=== PATIENT | male | born 1930 | race Caucasian/White ===

== ENCOUNTER → 2017-08-15 | Outpatient (CLI) | payer MEDICARE ==
--- NOTE | 2017-08-15 15:53 | PCVCIMAG ---
EXAM: BILATERAL LOWER EXTREMITY ARTERIAL DUPLEX INDICATION: Peripheral Arterial Disease. Leg pain. Nonhealing ulcers both lower legs. FINDINGS: Right Le-70% stenosis mid common femoral artery. Mild stenosis at the origin the profunda femoral artery. Segmental occlusion mid superficial femoral artery. Mid/distal superficial femoral artery refills and there is an 80% stenosis. 60-70% stenosis mid popliteal artery. Occlusion of the distal posterior tibial artery. The peroneal artery and anterior tibial artery are patent. Left Leg: The common femoral artery is patent. 90% stenosis at the origin the profunda femoral artery. Occlusion throughout the proximal and mid superficial femoral artery within prior stent. The popliteal artery is patent. The anterior tibial, peroneal, and posterior tibial arteries are occluded. 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 Occlusion of the right posterior tibial artery. Occlusion throughout the left superficial femoral artery within prior stent. Occlusion of the left anterior, peroneal, and posterior tibial arteries. LOC:[id number]
== END | disposition home or self-care (01) ==
LOC: PCVCIMAG 13:54
PROVIDERS: ATTEND Nuclear Medicine Nuclear Cardiology
DX: I73.9 Peripheral vascular disease, unspecified (principal); L97.929 Non-pressure chronic ulcer of unspecified part of left lower leg with unspecified severity; L97.919 Non-pressure chronic ulcer of unspecified part of right lower leg with unspecified severity; I70.8 Atherosclerosis of other arteries
CPT/HCPCS: 93925